=== PATIENT | female | born 1985 | race Caucasian/White ===

== ENCOUNTER 2017-04-10 18:08 | Observation (INO) | payer OTHER ==
--- NOTE | 2017-04-10 18:29 | OBPROG ---
OBG Labor Progress Note Assessment/Plan: Assessment: contractions doppler 145 irregular contractions feeling tightening kaushik pain leaking and bleeding wet prep negative exam cl/th/high posterior soft ffn collected Plan:ffn wet prep iv fluids bolus 1l of fluid/ fu thursday in the office/ increase fluids3-4 l per day 04/10/17 18:26 Subjective: States feeling regular contractions since yesterday. Irregular contractions since1-2 weeks ago. Denies leakng or bleeding. States feeling positive movement - SVE Dilation (cm): 0 Effacement (%): 0 Station: -3 - Physical Exam General Appearance: WD/WN, alert, no apparent distress Respiratory: chest non-tender, lungs clear, normal breath sounds Cardiac/Chest: regular rate, rhythm Abdomen: normal bowel sounds Extremities: normal range of motion, Moses's sign (negative bilaterally) DTR- Lower Extremities: Knee (R): 1+, Knee (L): 1+ (no clonus) Skin: normal color, warm/dry Neuro/Psych: no motor/sensory deficits, alert, normal mood/affect, oriented x 3 ICD10 Worksheet Patient Problems: Problems Problem Status Onset uterine contractions in second trimester, antepartum Acute - ICD10 Problem Qualifiers (1) uterine contractions in second trimester, antepartum
[2017-04-10] MEDS ORDERED: LR 1,000 ML IV ONE (18:38)
--- NOTE | 2017-04-10 19:10 | GHP ---
[f rep st] HISTORY AND PHYSICAL DATE OF ADMISSION: 04/10/2017 HISTORY OF PRESENT ILLNESS: Patient is a 31-year-old 2, para 0-A1 with an EDC of 07/12/2017 , which gives her a gestational age 26 and 5/7 weeks. Patient comes to [facility] today a t 5 o'clock for an appointment with complaint of irregular contractions times 1-2 weeks. Regular co ntractions yesterday and today, anywhere from 3 to 6 contractions in an hour. Denies leaking, bleed ing, just more regular contractions x2 days. Patient has been routinely seen by [facility] since 6 weeks. Had several beta-hCGs, early ultrasound. A 1st trimester ultrasound that confirme d her due date of 07/12/2017. MEDICAL HISTORY: Benign. SURGICAL HISTORY: In 4th grade patient had right ovary and an appendectomy. She also had a D and C December of 2015. GYNECOLOGICAL HISTORY: An abnormal Pap with this , a colposcopy. We will re-do the Pap at the end of the . FAMILY HISTORY: Father had a mitral valve prolapse repair. SOCIAL HISTORY: Patient is . Denies smoking. Denies alcohol. Lives in a house. MEDICATIONS: Not taking any medications routinely other than vitamins. ALLERGIES: Patient is not allergic, NKDA. HISTORY: Has been without complications. PREVIOUS HISTORY: Spontaneous AB at 9 weeks in 12/2015. PHYSICAL EXAMINATION: GENERAL: Patient is awake, alert, oriented x3. LUNGS: Clear bilaterally. ABDOMEN: Bowel sounds are positive in all 4 quadrants. EXTREMITIES: DTRs are 1+ bilaterally. Eric ans sign is negative bilaterally. No clonus. No pain in calf per patient. LABORATORY DATA: Patient is RPR nonreactive. Gonorrhea and chlamydia are negative. Hepatitis is n egative. HIV is negative. Rubella is immune. PLAN OF CARE: 1. Speculum exam. 2. FFN. 3. Wet prep. 4. Cervical check. 5. IV fluids, 1 L bolus. Physician responsible is Dr. Scarlet Love. Will consult for plan of care as patient is . /[id number]/MODL
== END 2017-04-10 19:45 | disposition home or self-care (01) ==
LOC: FLD 18:08
PROVIDERS: ADMIT Advanced Practice Midwife; ATTEND Obstetrics & Gynecology
DX: O60.02 Preterm labor without delivery, second trimester (principal); Z3A.26 26 weeks gestation of pregnancy
CPT/HCPCS: G0378 ×2

== ENCOUNTER 2017-07-17 06:00 | Inpatient (IN) | payer OTHER ==
[2017-07-17] MEDS ORDERED: OLIVE OIL 118 ML BTL MISC PRN (06:19)
[2017-07-17] MEDS ORDERED: TERBUTALINE SULFATE 1 MG/ML VIAL IV PRN (06:19)
[2017-07-17] MEDS ORDERED: OXYTOCIN 20 UNIT in LR 1,000 ML IV PRN (06:19)
[2017-07-17] MEDS ORDERED: EPSOM SALT 454 GM TP PRN (06:19)
[2017-07-17 06:49] LABS: % IMMATURE GRANULYOCYTES 0.3 % (0.0-1.1); ABSOLUTE IMMATURE GRANULOCYTES 0.03 10^3/uL (0.00-0.10); ADD DIFF? NO; ADD MORPH? NO; ADD SCAN? NO; ATYPICAL LYMPHOCYTE FLAG 0 (0-99); FRAGMENT RBC FLAG 0 (0-99); HEMATOCRIT 36.2 % (38.0-47.0); LEFT SHIFT FLG 0 (0-99); LIPEMIA HEMOLYSIS FLAG 90 (0-99); MEAN CELL HEMOGLOBIN 34.9 pg (27.9-34.1); MEAN CELL HEMOGLOBIN CONCENTR. 35.9 g/dL (32.4-36.7); MEAN CELL VOLUME 97.3 fL (81.5-99.8); MEAN PLATELET VOLUME 12.1 fL (8.7-11.7); PLATELET CLUMPS FLAG 0 (0-99); PLATELET COUNT 119 10^3/uL (150-400); RED BLOOD CELL COUNT 3.72 10^6/uL (4.18-5.33); RED CELL DISTRIBUTION WIDTH 12.1 % (11.5-15.2)
[2017-07-17] MEDS ORDERED: LR 500 ML IV PRN (08:10)
[2017-07-17] MEDS ORDERED: OXYTOCIN 30 UNIT in NS 500 ML IV SCH (08:15)
--- NOTE | 2017-07-17 08:47 | GHP ---
[f rep st] PREOP HISTORY AND PHYSICAL DATE OF ADMISSION: 07/17/2017 ADMITTING DIAGNOSIS: Intrauterine at 40-5/7 weeks' gestation, with induction of labor seco ndary to post-term. HISTORY OF PRESENT ILLNESS: The patient is a 31-year-old, 2, para 0-0-1-0, with a last menst rual period of 10/04/2016 and an EDC of 07/12/2017, which was confirmed by an 11-week ultrasound. Gila rocha has had good care at [facility] since registration at 11 weeks, and has had an u ncomplicated course. On her risk factors, she is Rh negative. She is status post RhoGAM. She did have an LGSIL Pap on her initial new OB visit. Colposcopy was negative. She will h ave a repeat , and she is postterm. Ultrasounds, labs, and all other evaluations in this p regnancy have been normal, and she has reached 40-5/7 weeks' gestation. The patient had a Blair cath eter placed in the office on the evening of the . Has had mild cramping overnight, but overall fe els fine. Minimal bleeding. Good movement. REVIEW OF SYSTEMS: Negative. PAST OB HISTORY: She had 1 SAB. This is her second . PAST GYNECOLOGICAL HISTORY: Noncontributory. She has a normal menstrual triad. Abnormal Pap as bef ore mentioned. She did have a history of abnormal Paps back in 2012, and positive high-risk HPV. No history of any other STDs. She does have a history of a right oophorectomy secondary to ovarian tor damian. PAST MEDICAL HISTORY: None. PAST SURGICAL HISTORY: The above-mentioned oophorectomy, and a history of an appendectomy at age 9. ALLERGIES: No known drug allergies. MEDICATIONS: Include vitamins and DHA. SOCIAL HISTORY: She is . She lives with . 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 She denies tobacco, alcohol, and drug use. FAMILY HISTORY: Noncontributory. OBJECTIVE: VITAL SIGNS: Today she is afebrile. Vital signs are stable. PELVIC: heart tones are 130s, reactive, moderate variability, category 1. She is not angelica. Cervix was checked. The Blair bulb was still intact. ASSESSMENT AND PLAN: A 31-year-old, 2, para 0-0-1-0 at 40-5/7 weeks gestation. Induction of labor secondary to post-term. The patient will be started on Pitocin per protocol. Will likely arsen leland an epidural for pain control prior to artificial rupture of membranes. /[id number]/MODL
[2017-07-17] MEDS: LR 1,000 ML IV PRN ×2 (09:32→16:12)
--- NOTE | 2017-07-17 13:08 | OBPROG ---
Labor Progress Note Assessment/Plan: Assessment: 31 y/o @ 40 5/7 weeks IOL secondary to post term on pitocin Plan: AROM currently for thick meconium, pt on pitocin and may want to have an epidural later. Good cervical progress, status reassuring. 07/17/17 13:09 Subjective/Intrapartum Course: 07/17/17 13:05 Pt is beginning to feel stronger contractions. She has been walking and coping well this am. Objective: 07/17/17 06:40 Patient ABO/Rh A NEGATIVE 07/17/17 06:40 - SVE Dilation (cm): 4 Effacement (%): 80 Station: -2 Membranes: AROM Amniotic Fluid Color: Thick Meconium - Contraction Pattern Assessment Current Contraction Pattern: Regular (Q 3) - FHR Assessment Riley FHR (bpm): 140 FHR Pattern Variability: Moderate FHR Category: 1 - Procedures Non-surgical Procedures: Amniotomy - AP Antepartum Course: 07/17/17 13:06 Rh neg, LGSIL pap neg colpo Oxytocin Orders Assessment - Pre-Induction/Augmentation Assessment Indication: post term induction of labor Presentation: Vertex, Occiput Anterior Gestational Age: 40 week(s) and 5 day(s) Gestational Age Determined By: Last Menstral Period Estimated Weight: 2501-3400g Membrane Status: Ruptured Current Sterile Vaginal Exam (SVE): 4/80/-2 Current Contraction Pattern: Regular (Q 2-3) - Heart Rate Pattern Riley FHR Baseline (bpm): 140 FHR Category: 1 FHR Pattern Variability: Moderate FHR Accelerations: Present - Lyn's Score Dilation: 3-4cm Effacement: 80+ Station: -2 Cervix: Medium Cervix Position: Posterior Lyn Score Total: 7 - Induction/Augmentation Consent Risks/Benefits of Procedure Reviewed/Pt Agrees to Proceed: Yes ICD10 Worksheet Patient Problems: Problems Problem Status Onset Post term Acute uterine contractions in second trimester, antepartum Acute - ICD10 Problem Qualifiers (1) Post term
[2017-07-17] MEDS ORDERED: FAMOTIDINE 20 MG/2 ML SDV IVP ONE (14:31)
--- NOTE | 2017-07-17 14:50 | OBPROG ---
Labor Progress Note Assessment/Plan: Assessment: 31 y/o @ 40 5/7 weeks IOL secondary to post term on pitocin Plan: Continued good progress. She wishes to try the tub for now, but will want an epidural soon. 07/17/17 13:09 07/17/17 14:49 Subjective/Intrapartum Course: 07/17/17 13:05 Pt is beginning to feel stronger contractions. She has been walking and coping well this am. 07/17/17 14:48 Pt is breathing through strong contractions, coping well but expressing interest in an epidural soon. Objective: 07/17/17 06:40 Patient ABO/Rh A NEGATIVE 07/17/17 06:40 - SVE Dilation (cm): 5 Effacement (%): 80 Station: -2 Membranes: AROM Amniotic Fluid Color: Thick Meconium - Contraction Pattern Assessment Current Contraction Pattern: Regular (Q 2-3) - Procedures Non-surgical Procedures: Amniotomy - AP Antepartum Course: 07/17/17 13:06 Rh neg, LGSIL pap neg colpo - Physical Exam Estimated Weight: 2501-3400g Oxytocin Orders Assessment - Pre-Induction/Augmentation Assessment Presentation: Vertex, Occiput Anterior Gestational Age: 40 week(s) and 5 day(s) Estimated Weight: 2501-3400g ICD10 Worksheet Patient Problems: Problems Problem Status Onset Post term Acute uterine contractions in second trimester, antepartum Acute - ICD10 Problem Qualifiers (1) Post term
[2017-07-17] MEDS: ONDANSETRON 4 MG/2 ML VIAL IVP PRN ×2 (14:52→18:35)
[2017-07-17] MEDS ORDERED: fentaNYL 2MCG/ML/BUP 0.1% RTU 100 ML BAG EP ONE (15:59)
[2017-07-17] MEDS ORDERED: fentaNYL 100 MCG/2 ML INJ ONE (16:00)
[2017-07-17] MEDS ORDERED: PHENYLEPHRINE HCL 100 MCG/ML SYR ONE (16:00)
[2017-07-17] MEDS ORDERED: BUPIVACAINE 0.25% 30 ML SDV ONE (16:00)
--- NOTE | 2017-07-17 17:17 | PREANESOB ---
Obstetric Pre-Anesthesia Info - General Info Proposed Procedure: Labor and delivery with pitocin. : 2 Para: 0 NATHALIA: 07/12/17 Gestational Age: 40 week(s) and 5 day(s) - Info Status: Postmature Monitors: External FHR Baseline (bpm): 125 FHR Pattern: Reassuring - Labor Status Cervical Dilation per last OB SVE: 5 Station per last OB SVE: -2 Amniotic Fluid Color: Thick Meconium Indications for Labor Analgesia: Induction of Labor, Pain Control Labor Epidural: Proposed Anesthesia ROS: Prior D&C. Allergies/Adverse Reactions: Allergy/AdvReac Type Severity Reaction Status Date / Time No Known Allergies Allergy Verified 04/10/17 18:40 Home Medications: Medication Instructions Recorded Dha Complete 1 PO DAILY 12/12/15 Fiber Gummies 12/12/15 1 tab PO DAILY10 12/12/15 Visit Medications: Generic Name Dose Route Start Last Admin Trade Name Freq PRN Reason Stop Dose Admin Lactated Ringer's 1,000 mls @ 0 mls/hr 07/17/17 06:19 07/17/17 16:12 Lr IV 07/18/17 06:18 1,000 mls PRN PRN Administration SEE PROTOCOL CONDITIONS Protocol Per Protocol Oxytocin 20 unit/ Lactated 1,002 mls @ 150 mls/hr 07/17/17 06:19 Ringer's IV PRN PRN Post- bleeding Lactated Ringer's 500 mls @ 500 mls/hr 07/17/17 08:10 Lr IV 07/18/17 08:11 PRN PRN Maternal Hypotension Oxytocin 30 unit/ Sodium 503 mls @ 0 mls/hr 07/17/17 08:15 07/17/17 09:33 Chloride IV 01/13/18 08:14 503 mls CONT KARAN Administration Protocol Per Protocol Ibuprofen 600 mg 07/17/17 06:19 Motrin PO 01/13/18 06:18 Q6HRS PRN post , inflammation Magnesium Sulfate 454 gm 07/17/17 06:19 Epsom Salt TP 01/13/18 06:18 Q1H PRN perineal discomfort [place] Oil 118 ml 07/17/17 06:19 Sweet Oil MISC 01/13/18 06:18 ONCE PRN perineal massage Ondansetron HCl 4 mg 07/17/17 14:31 07/17/17 14:52 Zofran IVP 01/13/18 14:30 4 mg Q4HRS PRN Administration Nausea/Vomiting, Can't Take PO Terbutaline Sulfate 0.25 mg 07/17/17 06:19 Brethine IV 01/13/18 06:18 ONCE PRN Tachysystole Discontinued Medications Generic Name Dose Route Start Last Admin Trade Name Jessica PRN Reason Stop Dose Admin Bupivacaine HCl Confirm 07/17/17 16:00 Sensorcaine 0.25% Sdv Administered 07/17/17 16:01 Dose 30 ml .ROUTE .STK-MED ONE Famotidine 20 mg 07/17/17 14:31 Pepcid IVP 07/17/17 14:32 ONCE ONE Fentanyl Confirm 07/17/17 16:00 Sublimaze Administered 07/17/17 16:01 Dose 100 mcg .ROUTE .STK-MED ONE Fentanyl/Bupivacaine HCl Confirm 07/17/17 15:59 Fentanyl/Bupivacaine/Ns 2 Mcg/Ml 0.1% (Premix Administered 07/17/17 16:00 Dose 100 ml EP .STK-MED ONE Phenylephrine HCl Confirm 07/17/17 16:00 Neosynephrine Administered 07/17/17 16:01 Dose 1,000 mcg .ROUTE .STK-MED ONE - Anesthesia History Response to Local Anesthetics: Normal Anesthesia & Operative History: No Prior Problems Family Anesthesia History: Negative - Social History Substance Use/Abuse: Denies - Vital Signs Blood Pressure: 146/67 Heart Rate: 60 Height/Weight (Nursing): Height 167.64 cm Weight 74.389 kg - Focused Exam Neck exam: FROM Mallampati Score: Class 2 Mouth exam: normal dental/mouth exam Pulmonary: no respiratory distress Cardiovascular: regular rate and rhythym Labs: 07/17/17 06:40 Patient ABO/Rh A NEGATIVE 07/17/17 06:40 - Plan Consent Signed and on Chart: Yes Patient/Guardian Understands and Agrees to Plan: Yes Urgent/Emergent Case: Dorene archer completed preop but documented later for safe timely pt care
--- NOTE | 2017-07-17 17:22 | POSTANESTH ---
Post Anesthetic Evaluation Cardiovascular Status: Normal, Stable, Similar to Pre-Op Cond Respiratory Status: Normal, Stable, Similar to Pre-op Cond. Level of Consciousness/Mental Status: Can Participate in Eval, Alert and Oriented Pain Control: Adequate, Prn Tx Ordered Nausea/Vomiting Control: Adequate, Prn Tx Ordered Complications Possibly Related to Anesthesia: None Noted
[2017-07-17] MEDS ORDERED: PHENYLEPHRINE HCL 100 MCG/ML SYR IVP PRN (17:23)
[2017-07-17] MEDS ORDERED: LR 500 ML IV SCH (17:30)
[2017-07-17] MEDS ORDERED: fentaNYL 2MCG/ML/BUP 0.1% RTU 100 ML EP SCH (17:30)
--- NOTE | 2017-07-17 18:30 | OBPROG ---
Labor Progress Note Assessment/Plan: Assessment: 31 y/o @ 40 5/7 weeks IOL secondary to post term on pitocin Plan: Continued good progress. Continue pitocin, status is reassuring. 07/17/17 13:09 07/17/17 14:49 07/17/17 18:30 Subjective/Intrapartum Course: 07/17/17 13:05 Pt is beginning to feel stronger contractions. She has been walking and coping well this am. 07/17/17 14:48 Pt is breathing through strong contractions, coping well but expressing interest in an epidural soon. 07/17/17 18:29 Pt is now comfortable with her epidural. Objective: 07/17/17 06:40 Patient ABO/Rh A NEGATIVE 07/17/17 06:40 Temp Pulse Resp BP Pulse Ox 60 146/67 H 07/17/17 17:19 07/17/17 17:19 - SVE Dilation (cm): 6 Effacement (%): 90 Station: 0 Membranes: AROM Amniotic Fluid Color: Thick Meconium - Contraction Pattern Assessment Current Contraction Pattern: Regular (Q 2-3) - FHR Assessment Riley FHR (bpm): 140 FHR Pattern Variability: Moderate FHR Category: 1 - Procedures Non-surgical Procedures: Amniotomy - AP Antepartum Course: 07/17/17 13:06 Rh neg, LGSIL pap neg colpo - Physical Exam Estimated Weight: 2501-3400g Oxytocin Orders Assessment - Pre-Induction/Augmentation Assessment Presentation: Vertex, Occiput Anterior Gestational Age: 40 week(s) and 5 day(s) Estimated Weight: 2501-3400g ICD10 Worksheet Patient Problems: Problems Problem Status Onset Post term Acute uterine contractions in second trimester, antepartum Acute - ICD10 Problem Qualifiers (1) Post term
[2017-07-17] MEDS ORDERED: LIDOCAINE 1% 300 MG/30 ML SDV ONE (21:09)
[2017-07-17] MEDS ORDERED: AMMONIA AROMATIC 1 EACH AMP IH ONE (21:10)
[2017-07-17] MEDS ORDERED: TERBUTALINE SULFATE 1 MG/ML VIAL ONE (21:10)
[2017-07-17] MEDS ORDERED: OXYTOCIN 10 UNIT/ML VIAL ONE ×2 (21:10→21:12)
[2017-07-17] MEDS ORDERED: OLIVE OIL 118 ML BTL ONE (21:10)
[2017-07-17] MEDS ORDERED: MISOPROSTOL 200 MCG TAB ONE (21:11)
[2017-07-17] MEDS ORDERED: METOCLOPRAMIDE 10 MG/2 ML VIAL IVP ONE (21:30)
[2017-07-17] MEDS ORDERED: ACETAMINOPHEN 325 MG TAB PO PRN (23:07)
[2017-07-17] MEDS ORDERED: HYDROCORTISONE 0.5% CREAM TP PRN (23:07)
[2017-07-17] MEDS ORDERED: HYDROCODONE/APAP 5/325 TAB PO PRN (23:07)
[2017-07-17] MEDS ORDERED: SIMETHICONE 80 MG TAB CHEW PO PRN (23:07)
--- NOTE | 2017-07-17 23:11 | OBDEL ---
Info Type: Vaginal Presentation at Delivery: Vertex L&D Analgesia/Anesthesia Type: Epidural GBS+: No Intrapartum Medications: Generic Name Dose Route Start Last Admin Trade Name Freq PRN Reason Stop Dose Admin Lactated Ringer's 1,000 mls @ 0 mls/hr 07/17/17 06:19 07/17/17 16:12 Lr IV 07/18/17 06:18 1,000 mls PRN PRN Administration SEE PROTOCOL CONDITIONS Protocol Per Protocol Oxytocin 30 unit/ Sodium 503 mls @ 0 mls/hr 07/17/17 08:15 07/17/17 09:33 Chloride IV 01/13/18 08:14 503 mls CONT KARAN Administration Protocol Per Protocol Ondansetron HCl 4 mg 07/17/17 14:31 07/17/17 18:35 Zofran IVP 01/13/18 14:30 4 mg Q4HRS PRN Administration Nausea/Vomiting, Can't Take PO Discontinued Medications Generic Name Dose Route Start Last Admin Trade Name Freq PRN Reason Stop Dose Admin Famotidine 20 mg 07/17/17 14:31 07/17/17 18:40 Pepcid IVP 07/17/17 14:32 20 mg ONCE ONE Administration Oxytocin 20 unit/ Lactated 1,002 mls @ 150 mls/hr 07/17/17 06:19 07/17/17 22: 49 Ringer's IV 1,002 mls PRN PRN Administration Post- bleeding Metoclopramide HCl 10 mg 07/17/17 21:30 07/17/17 21:32 Reglan Injection IVP 07/17/17 21:31 10 mg ONCE ONE Administration - Care Provider Public Health Analyst/PET TECHNOLOGIST: Katharina Schulz - Hospital Course Intrapartum: 07/17/17 13:05 Pt is beginning to feel stronger contractions. She has been walking and coping well this am. 07/17/17 14:48 Pt is breathing through strong contractions, coping well but expressing interest in an epidural soon. 07/17/17 18:29 Pt is now comfortable with her epidural. Indications for Delivery: Postterm Favorable Cervix Vaginal Delivery - Delivery Provider Delivery Physician/CNM: Susan Oviedo - Labor and Delivery Onset of Contractions Date: 07/17/17 Onset of Contractions Time: 12:36 Onset of Contractions Type: Induced Rupture of Membranes Date: 07/17/17 Rupture of Membranes Time: 12:36 Rupture of Membranes Type: Artificial Amniotic Fluid Color: Thick Meconium Dilation Complete Date: 07/17/17 Dilation Complete Time: 20:58 Placenta Delivery Date: 07/17/17 Placenta Delivery Time: 22:48 Total Hours of Labor: 10 Non-surgical Procedures: Amniotomy Laceration: 1st Degree, Other (Specify) (R vaginal sulcus) Repair: 2-0 Vaginal Sponge Count Correct: Yes Vaginal Needle Count Correct: Yes Vaginal Sweep Performed: No EBL: 230 Delivery Events: None - Medications Labor Augmentation/Induction Methods Used: Pitocin Labor Augmentation/Induction Indication: Post Dates Data NATHALIA: 07/12/17 Gestational Age: 40 week(s) and 5 day(s) Riley Delivery Date: 07/17/17 Delivery Time: 22:43 Sex of Infant: Male Score (1 Min): 7 Score (5 Min): 8 ICD10 Worksheet Patient Problems: Problems Problem Status Onset Post term Acute (spontaneous vaginal delivery) Acute uterine contractions in second trimester, antepartum Acute - ICD10 Problem Qualifiers (1) Post term (2) (spontaneous vaginal delivery)
[2017-07-18] MEDS: IBUPROFEN 600 MG TAB PO PRN ×4 (00:31→19:32)
--- NOTE | 2017-07-18 09:59 | OBPP ---
Progress Note Assessment/Plan: Assessment:nipples nontender intact ff@u scant rubra lochia pain well managed voiding without difficulty Plan:pp day 1 expectant management 07/18/17 09:57 Subjective/ Course: 07/18/17 09:57 Doing well denies difficulties. well. Denies pain. Voiding without difficulty Objective: 07/17/17 06:40 Patient ABO/Rh A NEGATIVE 07/18/17 01:55 Temp Pulse Resp BP Pulse Ox 36.1 C 58 L 19 122/67 H 96 07/18/17 08:15 07/18/17 08:15 07/18/17 08:15 07/18/17 08:15 07/18/17 08:15 Uterine Position/Fundal Height: At Umbilicus Uterine Tone: Firm Physical Exam - Physical Exam General Appearance: WD/WN, alert, no apparent distress Abdomen: other (ff@u / scant rubra lochia) Extremities: normal range of motion, Moses's sign (negative bilaterally) DTR- Lower Extremities: Knee (R): 1+, Knee (L): 1+ (no clonus) Skin: normal color, warm/dry Neuro/Psych: no motor/sensory deficits, alert, normal mood/affect, oriented x 3
[2017-07-18] MEDS: DOCUSATE SODIUM 100 MG CAP PO PRN ×2 (12:50→19:32)
[2017-07-18 20:09] VITALS: RESP 16
[2017-07-19] MEDS: IBUPROFEN 600 MG TAB PO PRN (09:04)
[2017-07-19] MEDS: DOCUSATE SODIUM 100 MG CAP PO PRN (09:04)
[2017-07-19 09:07] VITALS: BP 115/78; PULSE 68; TEMP 98.1; O2SAT 95
--- NOTE | 2017-07-19 12:52 | OBPP ---
Progress Note Assessment/Plan: Assessment: 31 y/o PPD #2 s/p doing well Plan: D/c home today with Ibuprofen. Follow-up @ [facility] 4 and 6 weeks. 07/17/17 13:09 07/17/17 14:49 07/17/17 18:30 07/19/17 12:51 Subjective/ Course: 07/18/17 09:57 Doing well denies difficulties. well. Denies pain. Voiding without difficulty 07/19/17 12:48 Pt is doing well today. She has min perineal pain and cramping controlled with Ibuprofen. Breast feeding is going well and baby is doing well. They are ready to d/c home. Objective: 07/17/17 06:40 Patient ABO/Rh A NEGATIVE 07/18/17 01:55 Temp Pulse Resp BP Pulse Ox 36.7 C 68 16 115/78 95 07/19/17 09:06 07/19/17 09:06 07/18/17 20:00 07/19/17 09:06 07/19/17 09:06 Uterine Position/Fundal Height: Umbilicus -2 Uterine Tone: Firm Physical Exam - Physical Exam Neck: non-tender, full range of motion, supple Respiratory: chest non-tender, lungs clear, normal breath sounds Cardiac/Chest: regular rate, rhythm Abdomen: normal bowel sounds Extremities: swelling (1+), Moses's sign (neg)
== END 2017-07-19 14:30 | disposition home or self-care (01) | DRG 775 ==
LOC: FLD 06:07 → FOB 07-18 02:50
PROVIDERS: ADMIT Obstetrics & Gynecology; ATTEND Obstetrics & Gynecology
DX: O48.0 Post-term pregnancy (principal); O77.0 Labor and delivery complicated by meconium in amniotic fluid; O70.0 First degree perineal laceration during delivery; O26.893 Other specified pregnancy related conditions, third trimester; Z67.91 Unspecified blood type, Rh negative; Z3A.40 40 weeks gestation of pregnancy; Z37.0 Single live birth
CPT/HCPCS: J2370; J2405; J2765; J3010; J3105